=== PATIENT | female | born 1995 | race Caucasian/White ===

== ENCOUNTER 2016-04-19 23:33 | Emergency (ER) | payer OTHER ==
[2016-04-20] MEDS ORDERED: GI COCKTAIL 50ML BTL(HYOSCYAMINE/MAALOX/LIDOCAINE VISCOUS)(1:3:1) As Ordered ONE (00:11)
[2016-04-20] MEDS ORDERED: ONDANSETRON 4MG/2ML VIAL (J2405) As Ordered ONE (00:21)
[2016-04-20 00:35] LABS: BASO % 0.4 % (0.0-1.0); EOS # 0.1 K/mm3 (0.0-0.50); EOS % 1.2 % (0.0-3.0); LARGE UNSTAINED CELL # 0.2 K/mm3 (0.0-0.4); LARGE UNSTAINED CELL % 1.7 % (0.0-4.0); LYMPH # 2.4 K/mm3 (1.5-6.5); LYMPH % 20.6 % (24.0-44.0); MEAN CORPUSCULAR HEMOGLOBIN 26.6 pg (27.0-33.0); MEAN CORPUSCULAR HGB CONC 31.9 g/dl (32.0-36.5); MEAN CORPUSCULAR VOLUME 83.5 fl (80.0-96.0); MONO # 0.6 K/mm3 (0.0-0.8); MONO % 5.1 % (0.0-5.0); NEUTROPHILS # 8.2 K/mm3 (1.8-7.7); PLATELET COUNT, AUTOMATED 395 k/mm3 (150-450); RED CELL DISTRIBUTION WIDTH 12.9 % (11.5-14.5); WHITE BLOOD COUNT 11.5 K/mm3 (4.0-10.0)
[2016-04-20 00:40] LABS: CONTROL LINE HCG INT CTR LINE PRESENT
[2016-04-20 00:46] LABS: ALKALINE PHOSPHATASE 92 U/L (45-117); ALT/SGPT 18 U/L (12-78); AMYLASE 59 U/L (25-115); ANION GAP 7 MEQ/L (8-16); AST/SGOT 10 U/L (15-37); BILIRUBIN,DIRECT 0.1 MG/DL (0.0-0.2); BILIRUBIN,TOTAL 0.3 MG/DL (0.2-1.0); BLOOD UREA NITROGEN 14 MG/DL (7-18); CARBON DIOXIDE LEVEL 25 MEQ/L (21-32); CHLORIDE LEVEL 107 MEQ/L (98-107); CREATININE FOR GFR 0.87 MG/DL (0.55-1.02); GLOMERULAR FILTRATION RATE > 60.0 (>60); GLUCOSE, FASTING 105 MG/DL (70-105); POTASSIUM SERUM 3.9 MEQ/L (3.5-5.1); SODIUM LEVEL 139 MEQ/L (136-145)
--- NOTE | 2016-04-20 03:29 | EDDOCDS ---
Physician Documentation [facility] Name: Isela Chaudhary Age: 20 yrs Sex: Female : 1995 Arrival Date: 04/19/2016 Time: 23:33 Bed 9 Private MD: SIGIFREDO Stafford Disposition: 04/20/16 03:09 Discharged to Home/Self Care. Impression: Abdominal and pelvic pain, Vomiting. - Condition is Stable. - Discharge Instructions: Abdominal Pain, Adult. - Prescriptions for Prilosec 20 mg Oral Capsule - take 1 capsule by ORAL route once daily; 10 capsule. Zofran 4 mg Oral Tablet - take 1 tablet by ORAL route 4 times per day As needed; 10 tablet. - Medication Reconciliation, Local Pharmacy Hours form. - Follow up: SIGIFREDO Stafford; When: 2 - 3 days; Reason: Continuance of care. - Problem is an acute exacerbation. - Symptoms have improved. Historical: - Allergies: codeine (Upset stomach); Vicodin (Upset stomach); - Home Meds: 1. trazodone 100 mg Oral tab not taking because they do not work 2. Sertraline 50mg not taking because it makes her panic - PMHx: Depression; Anxiety; - PSHx: none; - Social history: Smoking status: Patient uses tobacco products, heavy tobacco smoker. No barriers to communication noted, The patient speaks fluent Sami. - Family history: Not pertinent. - : The pt / caregiver states he / she is not on anticoagulants. Home medication list is obtained from the patient, pill bottles. - Exposure Risk Screening:: None identified. 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 4 in. (162.56 cm); Pain 7/10; 04/20 03:24 BP 110 / 69; Pulse 95; Resp 20; Temp 96.2(O); Pulse Ox 91% on R/A; Pain 6/10; ls3 04/19 23:45 Body Mass Index 25.06 (66.22 kg, 162.56 cm) apr MDM: 00:06 NS 0.9% 1000 ml IV at bolus once ordered. mm11 00:06 Ondansetron 4 mg IVP once ordered. mm11 00:06 Undress patient appropriately for examination ordered. mm11 00:06 GI Cocktail - (Alum-Mag Hydroxide-Simeth 30 ml, Lidocaine 10 ml, Hyoscyamine 10 ml) PO mm11 once; Pre-mixed 50mL unit dose ordered. 00:07 Amylase Ordered. EDMS 00:07 Basic Metabolic Profile Ordered. EDMS 00:07 CBC with Diff Ordered. EDMS 00:07 HCG,Serum Qualitative Ordered. EDMS 00:07 Lipase Ordered. EDMS 00:07 Liver Profile Ordered. EDMS 00:07 NOTHING BY MOUTH+DIET ordered. EDMS 00:32 Financial registration complete. [facility] 00:48 [facility] Payment Agreement was scanned into [employer] and attached to record. [facility] 00:51 Basic Metabolic Profile Reviewed. mm11 00:51 CBC with Diff Reviewed. mm11 00:51 Liver Profile Reviewed. mm11 00:51 Amylase Reviewed. mm11 00:51 HCG,Serum Qualitative Reviewed. mm11 00:51 Lipase Reviewed. mm11 01:14 Abdomen, Flat\E\Upright,PA Chest Ordered. EDMS Administered Medications: 00:21 Drug: GI Cocktail - (Alum-Mag Hydroxide-Simeth Suspension 225 mg-200 mg-25 mg/5 mL 30 ko2 ml, Lidocaine Liquid 2 % 10 ml, Hyoscyamine Liquid 10 ml) Route: PO; 00:30 Drug: NS 0.9% 1000 ml [sodium chloride 0.9 % intravenous solution] Route: IV; Rate: ko2 bolus; Site: left forearm; 00:30 Drug: Ondansetron 4 mg [ondansetron HCl 2 mg/mL intravenous solution (2 mL)] Route: ko2 IVP; Site: right forearm; Signatures: Dispatcher MedHost EDNJ Leonor Eugene RN RN jan Maynard, Matthew, DO DO mm11 Jill Lugo RN RN ko2 Hook, Sandra [email or web address] The chart was reviewed and I authenticate all verbal orders and agree with the evaluation and treatment provided.Attachments: 00:48 [facility] Payment Agreement [facility] MTDD
--- NOTE | 2016-04-20 03:29 | EDDOCDS ---
Nurse's Notes [facility] Name: Isela Chaudhary Age: 20 yrs Sex: Female : 1995 Arrival Date: 04/19/2016 Time: 23:33 Bed 9 Private MD: SIGIFREDO Stafford Diagnosis: Abdominal and pelvic pain;Vomiting Presentation: 04/19 23:38 Presenting complaint: Patient states: she has had belly pain x 2 hours. when asked sandra where pain is she indicates epigastric pain. Last ate at 2pm, steak and cheese sub from [employer]. States she vomited x 3 between 9pm and 9:45pm. Risk factors: the patient reports no vaginal bleeding. Adult Sepsis Screening: The patient does not have new or worsening altered mentation. Patient's respiratory rate is less than 22. Systolic blood pressure is greater than 100. Patient has a qSOFA score of 0- Negative Sepsis Screen. Suicide/Homicide risk assessment- the patient denies having any suicidal and/or homicidal ideations and does not present with any other emotional, behavioral or mental health complaints. Status: The patient is a dependent. Transition of care: patient was not received from another setting of care. 23:38 Acuity: ROD Level 3 apr 23:38 Method Of Arrival: Ambulance apr Triage Assessment: 23:45 General: Appears uncomfortable. Pain: Location: epigastric area Pain currently is 7 out apr of 10 on a pain scale. HIV screening NA for this visit Offered previously. GI: Reports vomiting. 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 trazodone 100 mg Oral tab not taking because they do not work 2. Sertraline 50mg not taking because it makes her panic - PMHx: Depression; Anxiety; - PSHx: none; - Social history: Smoking status: Patient uses tobacco products, heavy tobacco smoker. No barriers to communication noted, The patient speaks fluent Thai. - Family history: Not pertinent. - : The pt / caregiver states he / she is not on anticoagulants. Home medication list is obtained from the patient, pill bottles. - Exposure Risk Screening:: None identified. Screenin/07 00:03 Screening information is obtained from the patient. Fall risk: No risks identified. ko2 Assistance ADL's: requires no assistance with activities of daily living. Abuse/DV Screen: The patient / caregiver reports he/she is: not in a situation that causes fear, pain or injury. Nutritional screening: No deficits noted. Advance Directives: Currently, there is no health care proxy. There is no active DNR order. There is no living will. There is no Power of Ornamenter Hand. home support is adequate. Assessment: 00:02 General: Appears uncomfortable, Behavior is appropriate for age, cooperative. Pain: ko2 Location: epigastric area Pain currently is 7 out of 10 on a pain scale. Pain does not radiate. Quality of pain is described as burning. Neurological: No deficits noted. Respiratory: No deficits noted. GI: Abdomen is non- distended Bowel sounds present X 4 quads. Abd is soft and non tender. Derm: Skin is normal. Musculoskeletal: Range of motion intact in all extremities. 01:10 General: Appears in no apparent distress, comfortable, Behavior is appropriate for age, ko2 cooperative. Neurological: No deficits noted. Respiratory: No deficits noted. Derm: Skin is normal. 02:40 General: Appears in no apparent distress, comfortable, Behavior is appropriate for age, ko2 cooperative. Pain: Location: epigastric area Pain currently is 4 out of 10 on a pain scale. Neurological: No deficits noted. Respiratory: No deficits noted. GI:. Derm: Skin is normal. 03:24 General: Appears in no apparent distress, comfortable, Behavior is appropriate for age, ko2 cooperative. Neurological: No deficits noted. Respiratory: No deficits noted. Derm: Skin is normal. Vital Signs: 04/19 23:45 BP 115 / 67; Pulse 83; Resp 20; Temp 97(O); Pulse Ox 98% ; Weight 66.22 kg (R); Height apr 5 ft. 4 in. (162.56 cm); Pain 7/10; 04/20 03:24 BP 110 / 69; Pulse 95; Resp 20; Temp 96.2(O); Pulse Ox 91% on R/A; Pain 6/10; ls3 04/19 23:45 Body Mass Index 25.06 (66.22 kg, 162.56 cm) apr Vitals: 04/19 23:45 Log In Time N/A - ambulance arrival. apr ED Course: 23:34 Patient visited by Abdiaziz Bonilla, Casket Inspector. ml3 23:34 Patient moved to Waiting ml3 23:35 Rivera [facility] is Private Physician. ml3 23:35 Jill Lugo,ROSALES is Primary Nurse. ml3 23:35 Patient moved to 9 ml3 23:42 Triage Initiated apr 23:55 Stephan Brady DO is Attending Physician. mm11 23:55 Patient visited by Stephan Brady DO. mm11 04/20 00:05 Patient visited by Stephan Brady DO. mm11 00:15 Maintain field IV. Dressing intact. Good blood return noted. Site clean & dry. Gauge & ko2 site: 20 gauge left AC. 00:21 Liver Profile Sent. ko2 00:21 Lipase Sent. ko2 00:21 HCG,Serum Qualitative Sent. ko2 00:21 CBC with Diff Sent. ko2 00:21 Basic Metabolic Profile Sent. ko2 00:21 Amylase Sent. ko2 00:48 [facility] Payment Agreement was scanned into [email or web address] and attached to record. slh 01:08 Patient visited by Jill Lugo RN. ko2 01:14 Patient visited by Delfino Kohli, NIRALI. kb5 02:06 Patient visited by Jill Lugo RN. ko2 02:41 Patient visited by Jill Lugo,ROSALES. ko2 03:08 Rivera [facility] is Referral Physician. mm11 03:24 Patient visited by Yennifer Kaur, NIRALI. ls3 03:25 The patient / caregiver is instructed regarding the plan of care and ED course. ko2 03:26 Discontinued lock intact, bleeding controlled, pressure dressing applied, No ko2 redness/swelling at site. No procedures done that require assistance. Administered Medications: 00:21 Drug: GI Cocktail - (Alum-Mag Hydroxide-Simeth Suspension 225 mg-200 mg-25 mg/5 mL 30 ko2 ml, Lidocaine Liquid 2 % 10 ml, Hyoscyamine Liquid 10 ml) Route: PO; 00:30 Drug: NS 0.9% 1000 ml [sodium chloride 0.9 % intravenous solution] Route: IV; Rate: ko2 bolus; Site: left forearm; 00:30 Drug: Ondansetron 4 mg [ondansetron HCl 2 mg/mL intravenous solution (2 mL)] Route: ko2 IVP; Site: right forearm; Order Results: Lab Order: Amylase; SPEC'M 04/20/16 00:19 Test: AMYLASE; Value: 59; Range: 25-115; Units: U/L; Status: F Lab Order: Basic Metabolic Profile; SPEC'M 04/20/16 00:19 Test: GLUCOSE, FASTING; Value: 105; Range: 70-105; Units: MG/DL; Status: F Test: BLOOD UREA NITROGEN; Value: 14; Range: 7-18; Units: MG/DL; Status: F Test: CREATININE FOR GFR; Value: 0.87; Range: 0.55-1.02; Units: MG/DL; Status: F Test: SODIUM LEVEL; Range: 136-145; Units: MEQ/L; Status: I Test: POTASSIUM SERUM; Range: 3.5-5.1; Units: MEQ/L; Status: I Test: CHLORIDE LEVEL; Range: 98-107; Units: MEQ/L; Status: I Test: CARBON DIOXIDE LEVEL; Range: 21-32; Units: MEQ/L; Status: I Test: ANION GAP; Range: 8-16; Units: MEQ/L; Status: I Test: CALCIUM LEVEL; Range: 8.5-10.1; Units: MG/DL; Status: I Test: GLOMERULAR FILTRATION RATE; Value: > 60.0; Range: >60; Status: F Test: SODIUM LEVEL; Value: 139; Range: 136-145; Units: MEQ/L; Status: F Test: POTASSIUM SERUM; Value: 3.9; Range: 3.5-5.1; Units: MEQ/L; Status: F Test: CHLORIDE LEVEL; Value: 107; Range: 98-107; Units: MEQ/L; Status: F Test: CARBON DIOXIDE LEVEL; Value: 25; Range: 21-32; Units: MEQ/L; Status: F Test: ANION GAP; Value: 7; Range: 8-16; Abnormal: Below low normal; Units: MEQ/L; Status: F Test: CALCIUM LEVEL; Value: 9.0; Range: 8.5-10.1; Units: MG/DL; Status: F Test Note: ; Units are mL/min/1.73 m2 Chronic Kidney Disease Staging per NKF: Stage I & II GFR >=60 Normal to Mildly Decreased Stage III GFR 30-59 Moderately Decreased Stage IV GFR 15-29 Severely Decreased Stage V GFR <15 Very Little GFR Left ESRD GFR <15 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 Lab Order: CBC with Diff; SPEC'M 04/20/16 00:19 Test: WHITE BLOOD COUNT; Value: 11.5; Range: 4.0-10.0; Abnormal: Above high normal; Units: K/mm3; Status: F Test: RED BLOOD COUNT; Value: 4.42; Range: 4.00-5.40; Units: M/mm3; Status: F Test: HEMOGLOBIN; Value: 11.8; Range: 12.0-16.0; Abnormal: Below low normal; Units: g/dl; Status: F Test: HEMATOCRIT; Value: 36.9; Range: 36.0-47.0; Units: %; Status: F Test: MEAN CORPUSCULAR VOLUME; Value: 83.5; Range: 80.0-96.0; Units: fl; Status: F Test: MEAN CORPUSCULAR HEMOGLOBIN; Value: 26.6; Range: 27.0-33.0; Abnormal: Below low normal; Units: pg; Status: F Test: MEAN CORPUSCULAR HGB CONC; Value: 31.9; Range: 32.0-36.5; Abnormal: Below low normal; Units: g/dl; Status: F Test: RED CELL DISTRIBUTION WIDTH; Value: 12.9; Range: 11.5-14.5; Units: %; Status: F Test: PLATELET COUNT, AUTOMATED; Value: 395; Range: 150-450; Units: k/mm3; Status: F Test: NEUTROPHILS %; Value: 71.0; Range: 36.0-66.0; Abnormal: Above high normal; Units: %; Status: F Test: LYMPH %; Value: 20.6; Range: 24.0-44.0; Abnormal: Below low normal; Units: %; Status: F Test: MONO %; Value: 5.1; Range: 0.0-5.0; Abnormal: Above high normal; Units: %; Status: F Test: EOS %; Value: 1.2; Range: 0.0-3.0; Units: %; Status: F Test: BASO %; Value: 0.4; Range: 0.0-1.0; Units: %; Status: F Test: LARGE UNSTAINED CELL %; Value: 1.7; Range: 0.0-4.0; Units: %; Status: F Test: NEUTROPHILS #; Value: 8.2; Range: 1.8-7.7; Abnormal: Above high normal; Units: K/mm3; Status: F Test: LYMPH #; Value: 2.4; Range: 1.5-6.5; Units: K/mm3; Status: F Test: MONO #; Value: 0.6; Range: 0.0-0.8; Units: K/mm3; Status: F Test: EOS #; Value: 0.1; Range: 0.0-0.50; Units: K/mm3; Status: F Test: BASO #; Value: 0.0; Range: 0.0-0.2; Units: K/mm3; Status: F Test: LARGE UNSTAINED CELL #; Value: 0.2; Range: 0.0-0.4; Units: K/mm3; Status: F Lab Order: HCG,Serum Qualitative; SPEC'M 04/20/16 00:19 Test: HCG, SERUM QUALITATIVE; Value: NEGATIVE; Range: NEGATIVE; Status: F Lab Order: Lipase; SPEC'M 04/20/16 00:19 Test: LIPASE; Value: 92; Range: 73-393; Units: U/L; Status: F Lab Order: Liver Profile; SPEC'M 04/20/16 00:19 Test: AST/SGOT; Value: 10; Range: 15-37; Abnormal: Below low normal; Units: U/L; Status: F Test: ALT/SGPT; Value: 18; Range: 12-78; Units: U/L; Status: F Test: ALKALINE PHOSPHATASE; Value: 92; Range: 45-117; Units: U/L; Status: F Test: BILIRUBIN,TOTAL; Value: 0.3; Range: 0.2-1.0; Units: MG/DL; Status: F Test: BILIRUBIN,DIRECT; Value: 0.1; Range: 0.0-0.2; Units: MG/DL; Status: F Test: TOTAL PROTEIN; Value: 8.0; Range: 6.4-8.2; Units: GM/DL; Status: F Test: ALBUMIN; Value: 4.0; Range: 3.2-5.2; Units: GM/DL; Status: F Test: ALBUMIN/GLOBULIN RATIO; Value: 1.00; Range: 1.00-1.93; Status: F Outcome: 03:09 Discharge ordered by Provider. mm11 03:27 Discharge Assessment: Patient awake, alert and oriented x 3. No cognitive and/or ko2 functional deficits noted. Patient verbalized understanding of disposition instructions. patient administered narcotics - no. The following High Risk Discharge criteria are identified:. The following High Risk Discharge criteria are identified: None. Discharged to home ambulatory, with significant other. Condition: stable. Discharge instructions given to patient, Instructed on discharge instructions, follow up and referral plans. medication usage, Demonstrated understanding of instructions, medications, Pt was receptive of discharge instructions/ teaching. Prescriptions given X 2. No special radiology studies were completed. Property sent home with patient. 03:27 Patient left the ED. ko2 Signatures: Leonor Eugene, RN Abdiaziz Lima, Casket Inspector Unit ml3 Delfino Kohli, SUTURE GAUGER SUTURE GAUGER kb5 Stephan Brady DO DO mm11 Jill Lugo RN RN ko2 Hook, Sandra slh Schiff, Lauren, SUTURE GAUGER SUTURE GAUGER ls3 MTDD
--- NOTE | 2016-04-20 08:35 | REP ---
Abdominal series: Three views. History: Abdominal pain. Comparison chest x-ray is from April 17, 2015. Findings: Upright chest radiograph is normal. There is no evidence of infiltrate or free subdiaphragmatic air. Heart size is normal. Pulmonary vasculature is not increased. Supine and erect views of the abdomen show a normal bowel gas pattern with air and stool in a nondistended colon. No mass, organomegaly or pathologic calcification is appreciated. Psoas margins and flank stripes are intact. Impression: Negative abdominal series. Signed by Dru Bullard MD 04/20/2016 08:48 A
--- NOTE | 2016-04-23 10:30 | EDDOCDS ---
Physician Documentation [facility] Name: Isela Chaudhary Age: 20 yrs Sex: Female : 1995 Arrival Date: 04/19/2016 Time: 23:33 Bed 9 Private MD: SIGIFREDO Stafford Disposition: 04/20/16 03:09 Discharged to Home/Self Care. Impression: Abdominal and pelvic pain, Vomiting. - Condition is Stable. - Discharge Instructions: Abdominal Pain, Adult. - Prescriptions for Prilosec 20 mg Oral Capsule - take 1 capsule by ORAL route once daily; 10 capsule. Zofran 4 mg Oral Tablet - take 1 tablet by ORAL route 4 times per day As needed; 10 tablet. - Medication Reconciliation, Local Pharmacy Hours form. - Follow up: SIGIFREDO Stafford; When: 2 - 3 days; Reason: Continuance of care. - Problem is an acute exacerbation. - Symptoms have improved. Historical: - Allergies: codeine (Upset stomach); Vicodin (Upset stomach); - Home Meds: 1. trazodone 100 mg Oral tab not taking because they do not work 2. Sertraline 50mg not taking because it makes her panic - PMHx: Depression; Anxiety; - PSHx: none; - Social history: Smoking status: Patient uses tobacco products, heavy tobacco smoker. No barriers to communication noted, The patient speaks fluent Turkmen. - Family history: Not pertinent. - : The pt / caregiver states he / she is not on anticoagulants. Home medication list is obtained from the patient, pill bottles. - Exposure Risk Screening:: None identified. 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 4 in. (162.56 cm); Pain 7/10; 04/20 03:24 BP 110 / 69; Pulse 95; Resp 20; Temp 96.2(O); Pulse Ox 91% on R/A; Pain 6/10; ls3 04/19 23:45 Body Mass Index 25.06 (66.22 kg, 162.56 cm) apr MDM: 00:06 NS 0.9% 1000 ml IV at bolus once ordered. mm11 00:06 Ondansetron 4 mg IVP once ordered. mm11 00:06 Undress patient appropriately for examination ordered. mm11 00:06 GI Cocktail - (Alum-Mag Hydroxide-Simeth 30 ml, Lidocaine 10 ml, Hyoscyamine 10 ml) PO mm11 once; Pre-mixed 50mL unit dose ordered. 00:07 Amylase Ordered. EDMS 00:07 Basic Metabolic Profile Ordered. EDMS 00:07 CBC with Diff Ordered. EDMS 00:07 HCG,Serum Qualitative Ordered. EDMS 00:07 Lipase Ordered. EDMS 00:07 Liver Profile Ordered. EDMS 00:07 NOTHING BY MOUTH+DIET ordered. EDMS 00:32 Financial registration complete. [facility] 00:48 [facility] Payment Agreement was scanned into [employer] and attached to record. slh 00:51 Basic Metabolic Profile Reviewed. mm11 00:51 CBC with Diff Reviewed. mm11 00:51 Liver Profile Reviewed. mm11 00:51 Amylase Reviewed. mm11 00:51 HCG,Serum Qualitative Reviewed. mm11 00:51 Lipase Reviewed. mm11 01:14 Abdomen, Flat\E\Upright,PA Chest Ordered. EDNH 09:08 T-Sheet-- Draft Copy was scanned into [employer] and attached to record. gb Administered Medications: 00:21 Drug: GI Cocktail - (Alum-Mag Hydroxide-Simeth Suspension 225 mg-200 mg-25 mg/5 mL 30 ko2 ml, Lidocaine Liquid 2 % 10 ml, Hyoscyamine Liquid 10 ml) Route: PO; 00:30 Drug: NS 0.9% 1000 ml [sodium chloride 0.9 % intravenous solution] Route: IV; Rate: ko2 bolus; Site: left forearm; 00:30 Drug: Ondansetron 4 mg [ondansetron HCl 2 mg/mL intravenous solution (2 mL)] Route: ko2 IVP; Site: right forearm; Signatures: Dispatcher [employer] EDNH Leonor Eugene RN RN jan Barnhardt, Gloria, Reg Reg Stephan Copeland, DO mm11 Jill Lugo RN RN ko2 Uyen Martin [facility] The chart was reviewed and I authenticate all verbal orders and agree with the evaluation and treatment provided.Attachments: 00:48 [facility] Payment Agreement [facility] 09:08 T-Sheet-- Draft Copy gb Chart Complete MTDD
--- NOTE | 2016-04-23 10:30 | EDDOCDS ---
Nurse's Notes [facility] Name: Isela Chaudhary Age: 20 yrs Sex: Female : 1995 Arrival Date: 04/19/2016 Time: 23:33 Bed 9 Private MD: SIGIFREDO Stafford Diagnosis: Abdominal and pelvic pain;Vomiting Presentation: 04/19 23:38 Presenting complaint: Patient states: she has had belly pain x 2 hours. when asked sandra where pain is she indicates epigastric pain. Last ate at 2pm, steak and cheese sub from [employer]. States she vomited x 3 between 9pm and 9:45pm. Risk factors: the patient reports no vaginal bleeding. Adult Sepsis Screening: The patient does not have new or worsening altered mentation. Patient's respiratory rate is less than 22. Systolic blood pressure is greater than 100. Patient has a qSOFA score of 0- Negative Sepsis Screen. Suicide/Homicide risk assessment- the patient denies having any suicidal and/or homicidal ideations and does not present with any other emotional, behavioral or mental health complaints. Status: The patient is a dependent. Transition of care: patient was not received from another setting of care. 23:38 Acuity: ROD Level 3 apr 23:38 Method Of Arrival: Ambulance apr Triage Assessment: 23:45 General: Appears uncomfortable. Pain: Location: epigastric area Pain currently is 7 out apr of 10 on a pain scale. HIV screening NA for this visit Offered previously. GI: Reports vomiting. 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 trazodone 100 mg Oral tab not taking because they do not work 2. Sertraline 50mg not taking because it makes her panic - PMHx: Depression; Anxiety; - PSHx: none; - Social history: Smoking status: Patient uses tobacco products, heavy tobacco smoker. No barriers to communication noted, The patient speaks fluent Sami. - Family history: Not pertinent. - : The pt / caregiver states he / she is not on anticoagulants. Home medication list is obtained from the patient, pill bottles. - Exposure Risk Screening:: None identified. Screenin/07 00:03 Screening information is obtained from the patient. Fall risk: No risks identified. ko2 Assistance ADL's: requires no assistance with activities of daily living. Abuse/DV Screen: The patient / caregiver reports he/she is: not in a situation that causes fear, pain or injury. Nutritional screening: No deficits noted. Advance Directives: Currently, there is no health care proxy. There is no active DNR order. There is no living will. There is no Power of Secretary Book Keeper. home support is adequate. Assessment: 00:02 General: Appears uncomfortable, Behavior is appropriate for age, cooperative. Pain: ko2 Location: epigastric area Pain currently is 7 out of 10 on a pain scale. Pain does not radiate. Quality of pain is described as burning. Neurological: No deficits noted. Respiratory: No deficits noted. GI: Abdomen is non- distended Bowel sounds present X 4 quads. Abd is soft and non tender. Derm: Skin is normal. Musculoskeletal: Range of motion intact in all extremities. 01:10 General: Appears in no apparent distress, comfortable, Behavior is appropriate for age, ko2 cooperative. Neurological: No deficits noted. Respiratory: No deficits noted. Derm: Skin is normal. 02:40 General: Appears in no apparent distress, comfortable, Behavior is appropriate for age, ko2 cooperative. Pain: Location: epigastric area Pain currently is 4 out of 10 on a pain scale. Neurological: No deficits noted. Respiratory: No deficits noted. GI:. Derm: Skin is normal. 03:24 General: Appears in no apparent distress, comfortable, Behavior is appropriate for age, ko2 cooperative. Neurological: No deficits noted. Respiratory: No deficits noted. Derm: Skin is normal. Vital Signs: 04/19 23:45 BP 115 / 67; Pulse 83; Resp 20; Temp 97(O); Pulse Ox 98% ; Weight 66.22 kg (R); Height apr 5 ft. 4 in. (162.56 cm); Pain 7/10; 04/20 03:24 BP 110 / 69; Pulse 95; Resp 20; Temp 96.2(O); Pulse Ox 91% on R/A; Pain 6/10; ls3 04/19 23:45 Body Mass Index 25.06 (66.22 kg, 162.56 cm) apr Vitals: 04/19 23:45 Log In Time N/A - ambulance arrival. apr ED Course: 23:34 Patient visited by Abdiaziz Bonilla, Wastewater Process Engineer. ml3 23:34 Patient moved to Waiting ml3 23:35 Rivera [facility] is Private Physician. ml3 23:35 Jill Lugo,RN is Primary Nurse. ml3 23:35 Patient moved to 9 3 23:42 Triage Initiated apr 23:55 Stephan Brady DO is Attending Physician. mm11 23:55 Patient visited by Stephan Brady DO. mm11 04/20 00:05 Patient visited by Stephan Brady DO. mm11 00:15 Maintain field IV. Dressing intact. Good blood return noted. Site clean & dry. Gauge & ko2 site: 20 gauge left AC. 00:21 Liver Profile Sent. ko2 00:21 Lipase Sent. ko2 00:21 HCG,Serum Qualitative Sent. ko2 00:21 CBC with Diff Sent. ko2 00:21 Basic Metabolic Profile Sent. ko2 00:21 Amylase Sent. ko2 00:48 [facility] Payment Agreement was scanned into [employer] and attached to record. slh 01:08 Patient visited by Jill Lugo,ROSALES. ko2 01:14 Patient visited by Delfino Kohli, NIRALI. kb5 02:06 Patient visited by Jill Lugo RN. ko2 02:41 Patient visited by Jill Lugo,ROSALES. ko2 03:08 Rivera [facility] is Referral Physician. mm11 03:24 Patient visited by Yennifer Kaur PCA. ls3 03:25 The patient / caregiver is instructed regarding the plan of care and ED course. ko2 03:26 Discontinued lock intact, bleeding controlled, pressure dressing applied, No ko2 redness/swelling at site. No procedures done that require assistance. 08:41 Abdomen, Flat\E\Upright,PA Chest Returned. EDMS 09:08 T-Sheet-- Draft Copy was scanned into [employer] and attached to record. gb Administered Medications: 00:21 Drug: GI Cocktail - (Alum-Mag Hydroxide-Simeth Suspension 225 mg-200 mg-25 mg/5 mL 30 ko2 ml, Lidocaine Liquid 2 % 10 ml, Hyoscyamine Liquid 10 ml) Route: PO; 00:30 Drug: NS 0.9% 1000 ml [sodium chloride 0.9 % intravenous solution] Route: IV; Rate: ko2 bolus; Site: left forearm; 00:30 Drug: Ondansetron 4 mg [ondansetron HCl 2 mg/mL intravenous solution (2 mL)] Route: ko2 IVP; Site: right forearm; Order Results: Lab Order: Amylase; SPEC'M 04/20/16 00:19 Test: AMYLASE; Value: 59; Range: 25-115; Units: U/L; Status: F Lab Order: Basic Metabolic Profile; SPEC'M 04/20/16 00:19 Test: GLUCOSE, FASTING; Value: 105; Range: 70-105; Units: MG/DL; Status: F Test: BLOOD UREA NITROGEN; Value: 14; Range: 7-18; Units: MG/DL; Status: F Test: CREATININE FOR GFR; Value: 0.87; Range: 0.55-1.02; Units: MG/DL; Status: F Test: SODIUM LEVEL; Range: 136-145; Units: MEQ/L; Status: I Test: POTASSIUM SERUM; Range: 3.5-5.1; Units: MEQ/L; Status: I Test: CHLORIDE LEVEL; Range: 98-107; Units: MEQ/L; Status: I Test: CARBON DIOXIDE LEVEL; Range: 21-32; Units: MEQ/L; Status: I Test: ANION GAP; Range: 8-16; Units: MEQ/L; Status: I Test: CALCIUM LEVEL; Range: 8.5-10.1; Units: MG/DL; Status: I Test: GLOMERULAR FILTRATION RATE; Value: > 60.0; Range: >60; Status: F Test: SODIUM LEVEL; Value: 139; Range: 136-145; Units: MEQ/L; Status: F Test: POTASSIUM SERUM; Value: 3.9; Range: 3.5-5.1; Units: MEQ/L; Status: F Test: CHLORIDE LEVEL; Value: 107; Range: 98-107; Units: MEQ/L; Status: F Test: CARBON DIOXIDE LEVEL; Value: 25; Range: 21-32; Units: MEQ/L; Status: F Test: ANION GAP; Value: 7; Range: 8-16; Abnormal: Below low normal; Units: MEQ/L; Status: F Test: CALCIUM LEVEL; Value: 9.0; Range: 8.5-10.1; Units: MG/DL; Status: F Test Note: ; Units are mL/min/1.73 m2 Chronic Kidney Disease Staging per NKF: Stage I & II GFR >=60 Normal to Mildly Decreased Stage III GFR 30-59 Moderately Decreased Stage IV GFR 15-29 Severely Decreased Stage V GFR <15 Very Little GFR Left ESRD GFR <15 on COLLEGE COUNSELOR Lab Order: CBC with Diff; SPEC'M 04/20/16 00:19 Test: WHITE BLOOD COUNT; Value: 11.5; Range: 4.0-10.0; Abnormal: Above high normal; Units: K/mm3; Status: F Test: RED BLOOD COUNT; Value: 4.42; Range: 4.00-5.40; Units: M/mm3; Status: F Test: HEMOGLOBIN; Value: 11.8; Range: 12.0-16.0; Abnormal: Below low normal; Units: g/dl; Status: F Test: HEMATOCRIT; Value: 36.9; Range: 36.0-47.0; Units: %; Status: F Test: MEAN CORPUSCULAR VOLUME; Value: 83.5; Range: 80.0-96.0; Units: fl; Status: F Test: MEAN CORPUSCULAR HEMOGLOBIN; Value: 26.6; Range: 27.0-33.0; Abnormal: Below low normal; Units: pg; Status: F Test: MEAN CORPUSCULAR HGB CONC; Value: 31.9; Range: 32.0-36.5; Abnormal: Below low normal; Units: g/dl; Status: F Test: RED CELL DISTRIBUTION WIDTH; Value: 12.9; Range: 11.5-14.5; Units: %; Status: F Test: PLATELET COUNT, AUTOMATED; Value: 395; Range: 150-450; Units: k/mm3; Status: F Test: NEUTROPHILS %; Value: 71.0; Range: 36.0-66.0; Abnormal: Above high normal; Units: %; Status: F Test: LYMPH %; Value: 20.6; Range: 24.0-44.0; Abnormal: Below low normal; Units: %; Status: F Test: MONO %; Value: 5.1; Range: 0.0-5.0; Abnormal: Above high normal; Units: %; Status: F Test: EOS %; Value: 1.2; Range: 0.0-3.0; Units: %; Status: F Test: BASO %; Value: 0.4; Range: 0.0-1.0; Units: %; Status: F Test: LARGE UNSTAINED CELL %; Value: 1.7; Range: 0.0-4.0; Units: %; Status: F Test: NEUTROPHILS #; Value: 8.2; Range: 1.8-7.7; Abnormal: Above high normal; Units: K/mm3; Status: F Test: LYMPH #; Value: 2.4; Range: 1.5-6.5; Units: K/mm3; Status: F Test: MONO #; Value: 0.6; Range: 0.0-0.8; Units: K/mm3; Status: F Test: EOS #; Value: 0.1; Range: 0.0-0.50; Units: K/mm3; Status: F Test: BASO #; Value: 0.0; Range: 0.0-0.2; Units: K/mm3; Status: F Test: LARGE UNSTAINED CELL #; Value: 0.2; Range: 0.0-0.4; Units: K/mm3; Status: F Lab Order: HCG,Serum Qualitative; SPEC'M 04/20/16 00:19 Test: HCG, SERUM QUALITATIVE; Value: NEGATIVE; Range: NEGATIVE; Status: F Lab Order: Lipase; SPEC'M 04/20/16 00:19 Test: LIPASE; Value: 92; Range: 73-393; Units: U/L; Status: F Lab Order: Liver Profile; SPEC'M 04/20/16 00:19 Test: AST/SGOT; Value: 10; Range: 15-37; Abnormal: Below low normal; Units: U/L; Status: F Test: ALT/SGPT; Value: 18; Range: 12-78; Units: U/L; Status: F Test: ALKALINE PHOSPHATASE; Value: 92; Range: 45-117; Units: U/L; Status: F Test: BILIRUBIN,TOTAL; Value: 0.3; Range: 0.2-1.0; Units: MG/DL; Status: F Test: BILIRUBIN,DIRECT; Value: 0.1; Range: 0.0-0.2; Units: MG/DL; Status: F Test: TOTAL PROTEIN; Value: 8.0; Range: 6.4-8.2; Units: GM/DL; Status: F Test: ALBUMIN; Value: 4.0; Range: 3.2-5.2; Units: GM/DL; Status: F Test: ALBUMIN/GLOBULIN RATIO; Value: 1.00; Range: 1.00-1.93; Status: F Radiology Order: Abdomen, Flat\E\Upright,PA Chest Test: Abdomen, Flat\E\Upright,PA Chest REASON FOR EXAMINATION: Abdomen Pain; Abdominal series: Three views.; ; History: Abdominal pain.; ; Comparison chest x-ray is from April 17, 2015.; ; Findings: Upright chest radiograph is normal. There is no evidence of; infiltrate or free subdiaphragmatic air. Heart size is normal. Pulmonary; vasculature is not increased.; ; Supine and erect views of the abdomen show a normal bowel gas pattern with air; and stool in a nondistended colon. No mass, organomegaly or pathologic; calcification is appreciated. Psoas margins and flank stripes are intact.; ; Impression:; ; Negative abdominal series.; ; ; Signed by; Dru Bullard MD 04/20/2016 08:48 A; Outcome: 03:09 Discharge ordered by Provider. mm11 03:27 Discharge Assessment: Patient awake, alert and oriented x 3. No cognitive and/or ko2 functional deficits noted. Patient verbalized understanding of disposition instructions. patient administered narcotics - no. The following High Risk Discharge criteria are identified:. The following High Risk Discharge criteria are identified: None. Discharged to home ambulatory, with significant other. Condition: stable. Discharge instructions given to patient, Instructed on discharge instructions, follow up and referral plans. medication usage, Demonstrated understanding of instructions, medications, Pt was receptive of discharge instructions/ teaching. Prescriptions given X 2. No special radiology studies were completed. Property sent home with patient. 03:27 Patient left the ED. ko2 Signatures: Dispatcher [employer] EDMS Leonor Eugene RN RN jan Barnhardt, Gloria, Reg Reg gb Abdiaziz Bonilla, Wastewater Process Engineer Unit ml3 Delfino Kohli, CATTLE TESTER CATTLE TESTER kb5 Stephan Brady, DO mm11 Jill Lugo,RN RN ko2 Uyen Martin Lauren, CATTLE TESTER CATTLE TESTER ls3 Chart Complete MTDD
--- NOTE | 2016-04-23 10:30 | EDDOCDS ---
Physician Documentation [facility] Name: Isela Chaudhary Age: 20 yrs Sex: Female : 1995 Arrival Date: 04/19/2016 Time: 23:33 Bed 9 Private MD: SIGIFREDO Stafford Disposition: 04/20/16 03:09 Discharged to Home/Self Care. Impression: Abdominal and pelvic pain, Vomiting. - Condition is Stable. - Discharge Instructions: Abdominal Pain, Adult. - Prescriptions for Prilosec 20 mg Oral Capsule - take 1 capsule by ORAL route once daily; 10 capsule. Zofran 4 mg Oral Tablet - take 1 tablet by ORAL route 4 times per day As needed; 10 tablet. - Medication Reconciliation, Local Pharmacy Hours form. - Follow up: SIGIFREDO Stafford; When: 2 - 3 days; Reason: Continuance of care. - Problem is an acute exacerbation. - Symptoms have improved. Historical: - Allergies: codeine (Upset stomach); Vicodin (Upset stomach); - Home Meds: 1. trazodone 100 mg Oral tab not taking because they do not work 2. Sertraline 50mg not taking because it makes her panic - PMHx: Depression; Anxiety; - PSHx: none; - Social history: Smoking status: Patient uses tobacco products, heavy tobacco smoker. No barriers to communication noted, The patient speaks fluent Bengali. - Family history: Not pertinent. - : The pt / caregiver states he / she is not on anticoagulants. Home medication list is obtained from the patient, pill bottles. - Exposure Risk Screening:: None identified. 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 4 in. (162.56 cm); Pain 7/10; 04/20 03:24 BP 110 / 69; Pulse 95; Resp 20; Temp 96.2(O); Pulse Ox 91% on R/A; Pain 6/10; ls3 04/19 23:45 Body Mass Index 25.06 (66.22 kg, 162.56 cm) apr MDM: 00:06 NS 0.9% 1000 ml IV at bolus once ordered. mm11 00:06 Ondansetron 4 mg IVP once ordered. mm11 00:06 Undress patient appropriately for examination ordered. mm11 00:06 GI Cocktail - (Alum-Mag Hydroxide-Simeth 30 ml, Lidocaine 10 ml, Hyoscyamine 10 ml) PO mm11 once; Pre-mixed 50mL unit dose ordered. 00:07 Amylase Ordered. EDMS 00:07 Basic Metabolic Profile Ordered. EDMS 00:07 CBC with Diff Ordered. EDMS 00:07 HCG,Serum Qualitative Ordered. EDMS 00:07 Lipase Ordered. EDMS 00:07 Liver Profile Ordered. EDMS 00:07 NOTHING BY MOUTH+DIET ordered. EDMS 00:32 Financial registration complete. [facility] 00:48 [facility] Payment Agreement was scanned into [employer] and attached to record. slh 00:51 Basic Metabolic Profile Reviewed. mm11 00:51 CBC with Diff Reviewed. mm11 00:51 Liver Profile Reviewed. mm11 00:51 Amylase Reviewed. mm11 00:51 HCG,Serum Qualitative Reviewed. mm11 00:51 Lipase Reviewed. mm11 01:14 Abdomen, Flat\E\Upright,PA Chest Ordered. EDAZ 09:08 T-Sheet-- Draft Copy was scanned into [employer] and attached to record. gb Administered Medications: 00:21 Drug: GI Cocktail - (Alum-Mag Hydroxide-Simeth Suspension 225 mg-200 mg-25 mg/5 mL 30 ko2 ml, Lidocaine Liquid 2 % 10 ml, Hyoscyamine Liquid 10 ml) Route: PO; 00:30 Drug: NS 0.9% 1000 ml [sodium chloride 0.9 % intravenous solution] Route: IV; Rate: ko2 bolus; Site: left forearm; 00:30 Drug: Ondansetron 4 mg [ondansetron HCl 2 mg/mL intravenous solution (2 mL)] Route: ko2 IVP; Site: right forearm; Signatures: Dispatcher [employer] EDAZ Leonor Eugene RN RN jan Barnhardt, Gloria, Reg Reg Stephan Copeland, DO mm11 Jill Lugo RN RN ko2 Uyen Martin [facility] The chart was reviewed and I authenticate all verbal orders and agree with the evaluation and treatment provided.Attachments: 00:48 [facility] Payment Agreement [facility] 09:08 T-Sheet-- Draft Copy gb Chart Complete MTDD
== END 2016-04-20 03:27 | disposition home or self-care (01) ==
LOC: M ED 23:33
DX: R10.9 Unspecified abdominal pain (principal); R11.10 Vomiting, unspecified; F32.9 Major depressive disorder, single episode, unspecified; F41.9 Anxiety disorder, unspecified; Z72.0 Tobacco use; Z88.5 Allergy status to narcotic agent
CPT/HCPCS: 74022; 80048; 80076; 82150; 83690; 84703; 85025; 96374; 99284; J2405

== ENCOUNTER 2016-05-25 14:09 | Emergency (ER) | payer OTHER ==
[2016-05-25] MEDS ORDERED: AMOXICILLIN 250 MG CAP As Ordered ONE (14:35)
[2016-05-25] MEDS ORDERED: traMADol 50 MG TAB As Ordered ONE (14:35)
--- NOTE | 2016-05-25 14:42 | EDDOCDS ---
Physician Documentation [facility] Name: Isela Chaudhary Age: 20 yrs Sex: Female : 1995 Arrival Date: 05/25/2016 Time: 14:09 Bed Triage 3 Private MD: SIGIFREDO Stafford Disposition: 05/25/16 14:31 Discharged to Home/Self Care. Impression: Atypical facial pain - dental abscess. - Condition is Stable. - Discharge Instructions: Dental Pain. - Prescriptions for Amoxicillin 500 mg Oral Capsule - take 1 capsule by ORAL route every 8 hours for 10 days; 30 tablet. Ultram 50 mg Oral Tablet - take 1 tablet by ORAL route every 6 hours As needed MDD: 4 tabs; 16 tablet. - Medication Reconciliation, Local Pharmacy Hours form. - Follow up: SIGIFREDO Stafford; When: Call to arrange an appointment; Reason: Wound/Symptom Recheck, Recheck today's complaints, Worsening of conditions, Continuance of care. - Problem is an ongoing problem. - Symptoms are unchanged. Historical: - Allergies: codeine (Upset stomach); Vicodin (Upset stomach); - Home Meds: 1. Sertraline 50mg daily 2. trazodone 100 mg Oral tab nightly PRN 3. ibuprofen 800 mg Oral tab 1 tab (Last dose: 05/25/2016 08:00) - PMHx: Anxiety; Depression; - PSHx: none; - Social history: Smoking status: Patient uses tobacco products, heavy tobacco smoker. No barriers to communication noted, The patient speaks fluent Frisian, Speaks appropriately for age. - Family history: Not pertinent. - : The pt / caregiver states he / she is not on anticoagulants. Home medication list is obtained from the patient. - Exposure Risk Screening:: None identified. 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 4 in. (162.56 cm); Pain 10/10; 14:18 BP 142 / 90; ck1 14:10 Body Mass Index 24.03 (63.50 kg, 162.56 cm) dem1 MDM: 14:30 Amoxicillin 500 mg PO once ordered. cc10 14:30 traMADol 50 mg PO once ordered. cc10 14:32 Financial registration complete. 14:32 [facility] Payment Agreement was scanned into [employer] and attached to record. gb Administered Medications: 14:39 Drug: Amoxicillin 500 mg [amoxicillin 250 mg capsule (2 caps)] Route: PO; ck1 14:39 Drug: traMADol 50 mg [tramadol 50 mg tablet (1 tabs)] Route: PO; ck1 Signatures: Sindy Dickey, Reg Reg gb Ingrid Gtz,RN RN ck1 Jayden Mai, PA-C PA-C cc10 The chart was reviewed and I authenticate all verbal orders and agree with the evaluation and treatment provided.Attachments: 14:32 [facility] Payment Agreement gb MTDD
--- NOTE | 2016-05-25 14:42 | EDDOCDS ---
Nurse's Notes [facility] Name: Isela Chaudhary Age: 20 yrs Sex: Female : 1995 Arrival Date: 05/25/2016 Time: 14:09 Bed Triage 3 Private MD: SIGIFREDO Stafford Diagnosis: Atypical facial pain-dental abscess Presentation: 05/25 14:14 Presenting complaint: Patient states: right ear pain radiating down to right jaw. Adult ck1 Sepsis Screening: The patient does not have new or worsening altered mentation. Patient's respiratory rate is less than 22. Systolic blood pressure is greater than 100. Patient has a qSOFA score of 0- Negative Sepsis Screen. Suicide/Homicide risk assessment- the patient denies having any suicidal and/or homicidal ideations and does not present with any other emotional, behavioral or mental health complaints. Status: The patient is a dependent. Transition of care: patient was not received from another setting of care. 14:14 Acuity: ROD Level 4 ck1 14:14 Method Of Arrival: Walkin/Carried/Asstd ck1 Triage Assessment: 14:15 General: Appears distressed, uncomfortable, Behavior is appropriate for age, ck1 cooperative. Pain: Location: right ear Pain currently is 10 out of 10 on a pain scale. HIV screening NA for this visit Offered previously. Neurological: Level of Consciousness is awake, alert, obeys commands. Respiratory: Respiratory effort is unlabored, Respiratory pattern is regular, symmetrical. Derm: Skin is pink, warm & dry. 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 Sertraline 50mg daily 2. trazodone 100 mg Oral tab nightly PRN 3. ibuprofen 800 mg Oral tab 1 tab (Last dose: 05/25/2016 08:00) - PMHx: Anxiety; Depression; - PSHx: none; - Social history: Smoking status: Patient uses tobacco products, heavy tobacco smoker. No barriers to communication noted, The patient speaks fluent Venezuelan, Speaks appropriately for age. - Family history: Not pertinent. - : The pt / caregiver states he / she is not on anticoagulants. Home medication list is obtained from the patient. - Exposure Risk Screening:: None identified. Screenin:39 Screening information is obtained from the patient. Fall risk: No risks identified. ck1 Assistance ADL's: requires no assistance with activities of daily living. Abuse/DV Screen: The patient / caregiver reports he/she is: not in a situation that causes fear, pain or injury. Nutritional screening: No deficits noted. Advance Directives: Currently, there is no health care proxy. home support is adequate. Assessment: 14:40 General: Appears uncomfortable, Behavior is appropriate for age, cooperative. Pain: ck1 Location: right ear Pain currently is 10 out of 10 on a pain scale. EENT: Oral mucosa is moist. Poor dentition noted. Respiratory: Respiratory effort is unlabored, Respiratory pattern is regular, symmetrical. Derm: Skin is pink, warm & dry. Vital Signs: 14:10 Pulse 91; Resp 18; Temp 97.1(T); Pulse Ox 100% on R/A; Weight 63.5 kg; Height 5 ft. 4 dem1 in. (162.56 cm); Pain 10/10; 14:18 BP 142 / 90; ck1 14:10 Body Mass Index 24.03 (63.50 kg, 162.56 cm) [facility] Vitals: 14:10 Log In Time: May 25, 2016 at 14:03. [facility] ED Course: 14:10 Patient visited by Peg Camejo. dem1 14:10 Rivera [facility] is Private Physician. dem1 14:10 Patient moved to Waiting dem1 14:11 [facility] cc10 14:11 Zo Strauss MD is Attending Physician. cc10 14:11 Patient visited by Peg Camejo. dem1 14:11 Patient moved to Pre RCE dem1 14:14 Triage Initiated ck1 14:16 Patient moved to Triage 3 ck1 14:24 Patient visited by Jayden Mai PA-C. cc10 14:24 Patient visited by Jayden Mai PA-C. cc10 14:31 Rivera [facility] is Referral Physician. cc10 14:32 [facility] Payment Agreement was scanned into [employer] and attached to record. 14:39 No IV's were initiated during this patient's visit. No procedures done that require ck1 assistance. 14:40 The patient / caregiver is instructed regarding the plan of care and ED course. ck1 Administered Medications: 14:39 Drug: Amoxicillin 500 mg [amoxicillin 250 mg capsule (2 caps)] Route: PO; ck1 14:39 Drug: traMADol 50 mg [tramadol 50 mg tablet (1 tabs)] Route: PO; ck1 Order Results: There are currently no results for this order. Outcome: 14:31 Discharge ordered by Provider. cc10 14:39 Discharge Assessment: Patient awake, alert and oriented x 3. No cognitive and/or ck1 functional deficits noted. Patient verbalized understanding of disposition instructions. patient administered narcotics - yes. Pt provided with safe discharge. The following High Risk Discharge criteria are identified: None. Discharged to home ambulatory, with family. Condition: stable. Discharge instructions given to patient, Instructed on discharge instructions, follow up and referral plans. medication usage, Demonstrated understanding of instructions, medications, Pt was receptive of discharge instructions/ teaching. Prescriptions given X 2. No special radiology studies were completed. Property :Personal belongings accompany Pt. 14:40 Patient left the ED. ck1 Signatures: Sindy Dickey, Reg Reg Ingrid Marks RN RN ck1 Peg Camejo dem1 Jayden Mai, PAChaparro PASkyC cc10 MTDAparna
--- NOTE | 2016-05-27 15:41 | EDDOCDS ---
Physician Documentation [facility] Name: Isela Chaudhary Age: 20 yrs Sex: Female : 1995 Arrival Date: 05/25/2016 Time: 14:09 Bed Triage 3 Private MD: SIGIFREDO Stafford Disposition: 05/25/16 14:31 Discharged to Home/Self Care. Impression: Atypical facial pain - dental abscess. - Condition is Stable. - Discharge Instructions: Dental Pain. - Prescriptions for Amoxicillin 500 mg Oral Capsule - take 1 capsule by ORAL route every 8 hours for 10 days; 30 tablet. Ultram 50 mg Oral Tablet - take 1 tablet by ORAL route every 6 hours As needed MDD: 4 tabs; 16 tablet. - Medication Reconciliation, Local Pharmacy Hours form. - Follow up: SIGIFREDO Stafford; When: Call to arrange an appointment; Reason: Wound/Symptom Recheck, Recheck today's complaints, Worsening of conditions, Continuance of care. - Problem is an ongoing problem. - Symptoms are unchanged. Historical: - Allergies: codeine (Upset stomach); Vicodin (Upset stomach); - Home Meds: 1. Sertraline 50mg daily 2. trazodone 100 mg Oral tab nightly PRN 3. ibuprofen 800 mg Oral tab 1 tab (Last dose: 05/25/2016 08:00) - PMHx: Anxiety; Depression; - PSHx: none; - Social history: Smoking status: Patient uses tobacco products, heavy tobacco smoker. No barriers to communication noted, The patient speaks fluent Turkmen, Speaks appropriately for age. - Family history: Not pertinent. - : The pt / caregiver states he / she is not on anticoagulants. Home medication list is obtained from the patient. - Exposure Risk Screening:: None identified. 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 4 in. (162.56 cm); Pain 10/10; 14:18 BP 142 / 90; ck1 14:10 Body Mass Index 24.03 (63.50 kg, 162.56 cm) dem1 MDM: 14:30 Amoxicillin 500 mg PO once ordered. cc10 14:30 traMADol 50 mg PO once ordered. cc10 14:32 Financial registration complete. 14:32 [facility] Payment Agreement was scanned into [employer] and attached to record. gb 17:02 T-Sheet-- Draft Copy was scanned into [employer] and attached to record. klr Administered Medications: 14:39 Drug: Amoxicillin 500 mg [amoxicillin 250 mg capsule (2 caps)] Route: PO; ck1 14:39 Drug: traMADol 50 mg [tramadol 50 mg tablet (1 tabs)] Route: PO; ck1 Signatures: Sindy Dickey, Reg Reg gb Ingrid GtzRN RN ck1 Jayden Mai, PASkyC PA-C cc10 Caroline Fernández klr The chart was reviewed and I authenticate all verbal orders and agree with the evaluation and treatment provided.Attachments: 14:32 [facility] Payment Agreement gb 17:02 T-Sheet-- Draft Copy klr Chart Complete MTDD
--- NOTE | 2016-05-27 15:41 | EDDOCDS ---
Nurse's Notes [facility] Name: Isela Chaudhary Age: 20 yrs Sex: Female : 1995 Arrival Date: 05/25/2016 Time: 14:09 Bed Triage 3 Private MD: SIGIFREDO Stafford Diagnosis: Atypical facial pain-dental abscess Presentation: 05/25 14:14 Presenting complaint: Patient states: right ear pain radiating down to right jaw. Adult ck1 Sepsis Screening: The patient does not have new or worsening altered mentation. Patient's respiratory rate is less than 22. Systolic blood pressure is greater than 100. Patient has a qSOFA score of 0- Negative Sepsis Screen. Suicide/Homicide risk assessment- the patient denies having any suicidal and/or homicidal ideations and does not present with any other emotional, behavioral or mental health complaints. Status: The patient is a dependent. Transition of care: patient was not received from another setting of care. 14:14 Acuity: ROD Level 4 ck1 14:14 Method Of Arrival: Walkin/Carried/Asstd ck1 Triage Assessment: 14:15 General: Appears distressed, uncomfortable, Behavior is appropriate for age, ck1 cooperative. Pain: Location: right ear Pain currently is 10 out of 10 on a pain scale. HIV screening NA for this visit Offered previously. Neurological: Level of Consciousness is awake, alert, obeys commands. Respiratory: Respiratory effort is unlabored, Respiratory pattern is regular, symmetrical. Derm: Skin is pink, warm & dry. 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 Sertraline 50mg daily 2. trazodone 100 mg Oral tab nightly PRN 3. ibuprofen 800 mg Oral tab 1 tab (Last dose: 05/25/2016 08:00) - PMHx: Anxiety; Depression; - PSHx: none; - Social history: Smoking status: Patient uses tobacco products, heavy tobacco smoker. No barriers to communication noted, The patient speaks fluent Nigerian, Speaks appropriately for age. - Family history: Not pertinent. - : The pt / caregiver states he / she is not on anticoagulants. Home medication list is obtained from the patient. - Exposure Risk Screening:: None identified. Screenin:39 Screening information is obtained from the patient. Fall risk: No risks identified. ck1 Assistance ADL's: requires no assistance with activities of daily living. Abuse/DV Screen: The patient / caregiver reports he/she is: not in a situation that causes fear, pain or injury. Nutritional screening: No deficits noted. Advance Directives: Currently, there is no health care proxy. home support is adequate. Assessment: 14:40 General: Appears uncomfortable, Behavior is appropriate for age, cooperative. Pain: ck1 Location: right ear Pain currently is 10 out of 10 on a pain scale. EENT: Oral mucosa is moist. Poor dentition noted. Respiratory: Respiratory effort is unlabored, Respiratory pattern is regular, symmetrical. Derm: Skin is pink, warm & dry. Vital Signs: 14:10 Pulse 91; Resp 18; Temp 97.1(T); Pulse Ox 100% on R/A; Weight 63.5 kg; Height 5 ft. 4 dem1 in. (162.56 cm); Pain 10/10; 14:18 BP 142 / 90; ck1 14:10 Body Mass Index 24.03 (63.50 kg, 162.56 cm) [facility] Vitals: 14:10 Log In Time: May 25, 2016 at 14:03. [facility] ED Course: 14:10 Patient visited by Peg Camejo. dem1 14:10 [place] [facility] [place] Physician. dem1 14:10 Patient moved to Waiting dem1 14:11 [facility] cc10 14:11 Zo Strauss MD is Attending Physician. cc10 14:11 Patient visited by Peg Camejo. dem1 14:11 Patient moved to Pre RCE dem1 14:14 Triage Initiated ck1 14:16 Patient moved to Triage 3 ck1 14:24 Patient visited by Jayden Mai PA-C. cc10 14:24 Patient visited by Jayden Mai PA-C. cc10 14:31 [place] [facility] [place]erral Physician. cc10 14:32 [facility] Payment Agreement was scanned into [employer] and attached to record. 14:39 No IV's were initiated during this patient's visit. No procedures done that require ck1 assistance. 14:40 The patient / caregiver is instructed regarding the plan of care and ED course. ck1 17:02 T-Sheet-- Draft Copy was scanned into [employer] and attached to record. klr Administered Medications: 14:39 Drug: Amoxicillin 500 mg [amoxicillin 250 mg capsule (2 caps)] Route: PO; ck1 14:39 Drug: traMADol 50 mg [tramadol 50 mg tablet (1 tabs)] Route: PO; ck1 Order Results: There are currently no results for this order. Outcome: 14:31 Discharge ordered by Provider. cc10 14:39 Discharge Assessment: Patient awake, alert and oriented x 3. No cognitive and/or ck1 functional deficits noted. Patient verbalized understanding of disposition instructions. patient administered narcotics - yes. Pt provided with safe discharge. The following High Risk Discharge criteria are identified: None. Discharged to home ambulatory, with family. Condition: stable. Discharge instructions given to patient, Instructed on discharge instructions, follow up and referral plans. medication usage, Demonstrated understanding of instructions, medications, Pt was receptive of discharge instructions/ teaching. Prescriptions given X 2. No special radiology studies were completed. Property :Personal belongings accompany Pt. 14:40 Patient left the ED. ck1 Signatures: Sindy Dickey, Reg Reg Ingrid Marks RN RN ck1 Peg Camejo Colin, PA-C PA-C cc10 Caroline Fernández Chart Complete MTDD
--- NOTE | 2016-05-27 15:41 | EDDOCDS ---
Physician Documentation [facility] Name: Isela Chaudhary Age: 20 yrs Sex: Female : 1995 Arrival Date: 05/25/2016 Time: 14:09 Bed Triage 3 Private MD: SIGIFREDO Stafford Disposition: 05/25/16 14:31 Discharged to Home/Self Care. Impression: Atypical facial pain - dental abscess. - Condition is Stable. - Discharge Instructions: Dental Pain. - Prescriptions for Amoxicillin 500 mg Oral Capsule - take 1 capsule by ORAL route every 8 hours for 10 days; 30 tablet. Ultram 50 mg Oral Tablet - take 1 tablet by ORAL route every 6 hours As needed MDD: 4 tabs; 16 tablet. - Medication Reconciliation, Local Pharmacy Hours form. - Follow up: SIGIFREDO Stafford; When: Call to arrange an appointment; Reason: Wound/Symptom Recheck, Recheck today's complaints, Worsening of conditions, Continuance of care. - Problem is an ongoing problem. - Symptoms are unchanged. Historical: - Allergies: codeine (Upset stomach); Vicodin (Upset stomach); - Home Meds: 1. Sertraline 50mg daily 2. trazodone 100 mg Oral tab nightly PRN 3. ibuprofen 800 mg Oral tab 1 tab (Last dose: 05/25/2016 08:00) - PMHx: Anxiety; Depression; - PSHx: none; - Social history: Smoking status: Patient uses tobacco products, heavy tobacco smoker. No barriers to communication noted, The patient speaks fluent Japanese, Speaks appropriately for age. - Family history: Not pertinent. - : The pt / caregiver states he / she is not on anticoagulants. Home medication list is obtained from the patient. - Exposure Risk Screening:: None identified. 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 4 in. (162.56 cm); Pain 10/10; 14:18 BP 142 / 90; ck1 14:10 Body Mass Index 24.03 (63.50 kg, 162.56 cm) dem1 MDM: 14:30 Amoxicillin 500 mg PO once ordered. cc10 14:30 traMADol 50 mg PO once ordered. cc10 14:32 Financial registration complete. 14:32 [facility] Payment Agreement was scanned into [employer] and attached to record. gb 17:02 T-Sheet-- Draft Copy was scanned into [employer] and attached to record. klr Administered Medications: 14:39 Drug: Amoxicillin 500 mg [amoxicillin 250 mg capsule (2 caps)] Route: PO; ck1 14:39 Drug: traMADol 50 mg [tramadol 50 mg tablet (1 tabs)] Route: PO; ck1 Signatures: Sindy Dickey, Reg Reg gb Ingrid GtzRN RN ck1 Jayden Mai, PASkyC PA-C cc10 Caroline Fernández klr The chart was reviewed and I authenticate all verbal orders and agree with the evaluation and treatment provided.Attachments: 14:32 [facility] Payment Agreement gb 17:02 T-Sheet-- Draft Copy klr Chart Complete MTDD
== END 2016-05-25 14:40 | disposition home or self-care (01) ==
LOC: M ED 14:09
DX: K02.9 Dental caries, unspecified (principal); F41.9 Anxiety disorder, unspecified; F32.9 Major depressive disorder, single episode, unspecified; Z79.899 Other long term (current) drug therapy; F17.210 Nicotine dependence, cigarettes, uncomplicated; Z88.5 Allergy status to narcotic agent

== ENCOUNTER → 2020-11-06 | Outpatient (CLI) | payer OTHER ==
--- NOTE | 2020-11-06 15:08 | REP ---
INDICATION: PRG LEVEL II ANATOMY. COMPARISON: None. TECHNIQUE: Transabdominal obstetric sonography. FINDINGS: Scanning through the gravid uterus demonstrates a viable single intrauterine gestation in cephalic lie. motion is observed and heart rate is recorded at 141 beats per minute. A posterior placenta is seen, grade 0, without evidence of placenta previa. Closed cervical length is measured at 3.6 cm transabdominally. No extrauterine abnormality is observed. Amniotic fluid is subjectively normal. No anomaly is seen. The following anatomic structures are identified and felt to be sonographically unremarkable: cranium, choroid plexus, cavum, face and profile, lungs, four-chamber heart with left and right ventricular outflow tract views, diaphragm, left-sided stomach, abdominal wall cord insertion, three-vessel umbilical cord, kidneys and bladder, spine, and upper and lower extremities. Cerebellum and posterior fossa are less than optimally seen. Biometry chart: BPD 5.4 cm, 22 weeks 3 days Head circumference 19.6 cm, 21 weeks 6 days Abdominal circumference 17.2 cm, 22 weeks 1 day Femur length 3.9 cm, 22 weeks 4 days Humeral length 3.5 cm, 22 weeks 1 day HC AC ratio normal 1.14 Cephalic index normal 0.78 Estimated weight 491 g, 1 lb 1 oz, 87th percentile for 21 weeks 3 days IMPRESSION: Viable single intrauterine gestation at 22 weeks 2 days by today's composite sonographic criteria. DEVON by today's sonography March 10, 2021 expected gestational age estimate based on known DEVON of 16 March 2021 is 21 weeks 3 days.. No complication identified. <Electronically signed by David Bullard > 11/06/20 [id number]
== END ==
LOC: M RAD 11:22
PROVIDERS: ATTEND Obstetrics & Gynecology
DX: Z36.9 Encounter for antenatal screening, unspecified (principal); Z3A.22 22 weeks gestation of pregnancy

== ENCOUNTER 2021-02-28 17:32 | Emergency (ER) | payer OTHER ==
[~2021-02-28] VITALS: Ht 162.6 cm; Wt 81.5 kg
[2021-02-28 17:33] VITALS: BP 149/86
[2021-02-28] MEDS ORDERED: PREN27TA3 (17:43)
[2021-02-28] MEDS ORDERED: DOCU100C16 (17:43)
[2021-02-28] MEDS ORDERED: CLIN-250 (17:43)
[2021-02-28] MEDS ORDERED: IBUP80TA (17:43)
[2021-02-28] MEDS ORDERED: FERR325T18 (17:43)
== END 2021-02-28 19:10 | disposition left against medical advice (07) ==
LOC: M ED 17:32
DX: Z53.21 Procedure and treatment not carried out due to patient leaving prior to being seen by health care provider (principal)